=== PATIENT | female | born 1955 | race Caucasian/White ===

== ENCOUNTER 2017-05-15 09:17 | Day surgery (SDC) | payer MEDICARE ==
--- NOTE | 2017-05-15 06:52 | History and Physical - Ferro ---
CHIEF COMPLAINT/HISTORY OF CHIEF COMPLAINT: This patient presents with a history of a central pain pattern or post stroke pain pattern which involves bilateral lower extremities and right upper extremity. Secondarily there is also a diagnosis of multiple sclerosis. Due to the failure of all therapies, the patient was referred to this facility for a trial of spinal Baclofen to determine if the implantation of a permanent system can be of any value in symptom control. PAST MEDICAL HISTORY: Cerebrovascular disease, stroke, hypertension, and multiple sclerosis. PAST SURGICAL HISTORY: None listed. MEDICATIONS ON ADMISSION: List to be provided. No blood thinners. ALLERGIES: None listed. FAMILY/PSYCHOSOCIAL HISTORY: Social history - Noncontributory. Family history - Cancer. SYSTEMS REVIEW: Unremarkable. PHYSICAL EXAMINATION: Height is 5'6", weight is 110. No vital signs. HEENT: Within normal limits. LUNGS: Clear. HEART: Regular rate and rhythm. ABDOMEN: Nontender. MUSCULOSKELETAL: Examination of the musculoskeletal system shows a hemiparesis left upper extremity and lower extremity. Further evaluation shows stiffness, tightness of mobility in bilateral lower extremities. 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 The sensory field functionality appears to be essentially intact. Motor functionality shows stiffness and reduced mobility and strength in the right lower extremity. No myoclonus. Reflexes are difficult to elicit. Ambulation - Total assistive device dependent. NEUROLOGIC: Cranial nerves are intact. IMPRESSION: 1. MULTIPLE SCLEROSIS, ICD-10 CODE G35.0. 2. 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 PLAN: The patient is here for an implanted spinal catheter infusion trial of Baclofen to determine if the implantation of a permanent system can be of any value in pain control. Diagnostic studies of the thoracic and lumbar spine show moderate rotoscoliosis with a convexity to the right which may present some mild difficulty with respect to catheter placement. The implanted catheter technique has been carefully discussed with patient family members as a method to help reduce side effects in the form of spinal headache and at the same time to reduce the number of needle placements into the spinal canal risking spinal injury. The implanted catheter will be tunneled externally to an external pump which will infuse the Baclofen. The trial will run for twelve to fourteen days and during this period of time three reprogramming's or increases of the Baclofen will be established if necessary. At the end of the twelve to fourteen day trial period we will either remove the implanted catheter or implant the pump subcutaneously. Also to help reduce the incidence of spinal headache an epidural blood patch will be performed during surgery. The potential risks, side effect, complications, spinal cord injury, paralysis, nerve root injury, and spinal headache have all been carefully reviewed and discussed. Information provided through the pile driving supervisor was provided and reviewed. A outbound telemarketing representative from [employer] had a conversation directly with the patient answering all questions relative to the procedure, risks, side effect, and complications. The patient understands and has consented. We will consider this procedure an overnight stay because of medical condition and discharge in the morning. JOB NUMBER: [id number] MTDD
[~2017-05-15 09:17] MED LIST: ACETAMINOPHEN 1,000 MG/100 ML BTL IV ONE; BACLOFEN 10 MCG in 0.9 % SODIUM CHLORIDE 10ML VIA 0.98 ML IT SCH; BACLOFEN 5,000 MCG in 0.9 % SODIUM CHLORIDE 500ML 490 ML IT SCH; CEFAZOLIN 2 Gram 2 GM/50 ML BAG IVPB ONE; FAMOTIDINE 20MG TABLET PO ONE; MECLIZINE 25 MG TABLET PO ONE; METOCLOPRAMIDE 10 MG TABLET PO ONE
[2017-05-15] MEDS ORDERED: PROPOFOL 10 MG/ML VIAL IV ONE (09:18)
[2017-05-15] MEDS ORDERED: LIDOCAINE 1% W/EPI 1:200,000 MPF 30ML SQ ONE (09:18)
[2017-05-15] MEDS ORDERED: CEFAZOLIN 1G VIAL IM ONE (09:18)
[2017-05-15] MEDS ORDERED: BUPIVACAINE 0.5% W/EPI MPF 30 ML VIAL IVP ONE (09:18)
[2017-05-15] MEDS ORDERED: HYDROMORPHONE HCL 2 MG/ML VIAL IV ONE (09:18)
[2017-05-15 09:49] LABS: BLOOD UREA NITROGEN 10 mg/dL (8-23); CREATININE 0.8 mg/dL (0.5-0.9); EST GLOMERULAR FILTRATION RATE > 60 mL/min; GLUCOSE,RANDOM 96 mg/dL (74-109)
[2017-05-15] MEDS ORDERED: ACETAMINOPHEN 325 MG TAB PO PRN ×2 (15:22)
[2017-05-15] MEDS ORDERED: METOCLOPRAMIDE 10 MG TABLET PO PRN (15:22)
[2017-05-15] MEDS ORDERED: DIPHENHYDRAMINE HCL 25 MG CAPSULE PO PRN ×2 (15:22)
[2017-05-15] MEDS ORDERED: DIPHENHYDRAMINE HCL IV 50 MG/ML VIAL IVP PRN ×2 (15:22)
[2017-05-15] MEDS ORDERED: OXYCODONE/APAP 10MG-325MG TABLET PO PRN ×2 (15:22)
[2017-05-15] MEDS ORDERED: SENNOSIDES/DOCUSATE SODIUM UD CAPSULE PO PRN ×2 (15:22)
[2017-05-15] MEDS ORDERED: HYDROMORPHONE HCL 2 MG/ML VIAL IM PRN ×2 (15:22)
[2017-05-15] MEDS ORDERED: AL HYDROX/MAG HYDROX 30ML UD PO PRN (15:22)
[2017-05-15] MEDS ORDERED: METOCLOPRAMIDE HCL 10 MG/2 ML VIAL IVP PRN (15:22)
[2017-05-15] MEDS ORDERED: HYDROCODONE/APAP 7.5/325MG TABLET PO PRN ×2 (15:22)
[2017-05-15] MEDS ORDERED: TEMAZEPAM 15 MG CAPSULE PO PRN ×2 (15:22)
[2017-05-15] MEDS ORDERED: FLUOXETINE 40 MG PO SCH (15:45)
[2017-05-15] MEDS ORDERED: PATIENT OWN MED: FLUOXETINE 20 MG PO SCH (15:45)
[2017-05-15] MEDS ORDERED: PATIENT OWN MED: AMLODIPINE 5 MG PO SCH (15:45)
--- NOTE | 2017-05-15 16:05 | Operative Note - Ferro ---
DATE OF SURGERY: 05/15/17 PREOPERATIVE DIAGNOSES: 1. POST CENTRAL PAIN STROKE SYSTEM, ICD-10 CODE = G89.0. 2. MULTIPLE SCLEROSIS, ICD-10 CODE = G35.0. OPERATION: 1. FLUOROSCOPICALLY-GUIDED ACCESS SPINAL SPACE AT L4/5, PLACEMENT OF THIN- WALLED SPINAL CATHETER POSITION T10. 2. DIAGNOSTIC MYELOGRAPHY WITH RADIOLOGIC SUPERVISION AND INTERPRETATION. 3. SPINAL BOLUS BACLOFEN 20 MCG THROUGH SPINAL CATHETER. 4. INCISION, SUBCUTANEOUS DISSECTION, AND ANCHORING OF SPINAL CATHETER TO SUPRASPINOUS FASCIA WITH AN ANCHOR AND NONABSORBABLE SUTURE. 5. INCISION, SUBCUTANEOUS DISSECTION, AND CREATION OF A SMALL SUBCUTANEOUS POUCH , LEFT FLANK. 6. TUNNELING BETWEEN CATHETER, MIDLINE POUCH, AND FLANK POUCH EXTENDING CATHETER INTO FLANK POUCH. 7. INTERFACE SPINAL CATHETER AT FLANK POUCH WITH SECOND CATHETER COMPONENT BY WAY OF CONNECTOR TUNNELING SECOND CATHETER COMPONENT 6 CM SUPERIOR EXITING SKIN. 8. INTERFACE EXTERNAL CATHETER WITH EXTERNAL PUMP SET TO DELIVER BACLOFEN AT 48 MCG PER DAY. 9. CLOSURE OF MIDLINE SPINAL CATHETER INCISION, VICRYL FOR FASCIA, AND RUNNING SUBCUTICULAR VICRYL FOR SKIN. CLOSURE OF LEFT FLANK POUCH WITH NYLON RUNNING SUTURE. 10. EPIDURAL BLOOD PATCH 15 ML AUTOLOGOUS BLOOD STERILE TECHNIQUE, LEFT ANTECUBITAL AFTER AN 18-GAUGE TUOHY NEEDLE WAS USED TO ACCESS EPIDURAL SPACE AT L5/S1. 11. DRESSINGS PLACED SECURING CATHETER AND ALL CONNECTIONS UNDER STERILE DRESSING. PATIENT TRANSPORTED TO RECOVERY ROOM FLAT, PILLOW UNDER HEAD AND KNEES , STABLE SHOWING NO SIDE-EFFECTS FROM THE PROCEDURE OR THE SEDATION. FUNCTIONALITY OF ALL EXTREMITIES. NO NEW PAIN PATTERN IDENTIFIED. PATIENT, ALTHOUGH SLIGHTLY SOMNOLENT, COMPLAINED OF NO SIDE-EFFECTS. SURGEON: MONICA DE LOS SANTOS D.O. ANESTHESIA: LOCAL SEDATION. ANESTHESIA PROVIDER: CHIP COFFEY CRNA. PROCEDURE: Intravenous line, vital sign monitoring, IV sedation, prepped and draped in sterile technique. Patient position prone. Sterile prep, sterile technique. Evaluating the spine and the anatomy with a moderately severe rotational scoliosis convexity to the right, the spinal interspace at L4/5 was identified and marked, skin infiltrated, and a 20-gauge spinal needle beveled with a long axis inserted into the spinal space using AP and lateral images and slow careful advancement of the needle. With CSF through the needle, no fasciculations, no complaints on part of the patient, a thin-walled spinal catheter was advanced and positioned midbody T10. The catheter was clamped to stop CSF leak after the stylette was removed. The skin above and below the needle infiltrated, incision made, and subcutaneous dissection was conducted to the supraspinous fascia. The needle was removed and the pursestring suture, which was placed, was tightened around the catheter to stop CSF leak. The catheter was laid flat onto the field and CSF was noted coming through the catheter. Diagnostic myelography was then performed, the resulting flow characteristics was smooth and linear into the space. There was no complaint of pain or any other side-effects on the part of the patient as the contrast was injected. A smooth linear flow of myelogram flow characteristics was identified confirming catheter position. A bolus of Baclofen 20 mcg was then given through the catheter. CSF continued to be noted through the catheter. The catheter was clamped. At the left flank, a site ultimately for either the pump or a tunneling point to the abdomen was identified, infiltrated with local, and then a small incision was made and a pouch formed subcutaneously. Spinal catheter was tunneled to this left flank pouch and exited the pouch itself. The spinal catheter was then resected and interfaced by way of a connector with a second catheter component. The second catheter component was then tunneled superior exiting the skin approximately 6 cm above the pouch. The external catheter was then interfaced with an external pump, which was set to deliver Baclofen at 48 mcg per day. The midline spinal catheter incision was closed Vicryl for fascia and running subcuticular Vicryl for skin. Dermabond closure. The left flank pouch was closed with a running nylon suture. At L5/S1, one level below the dural puncture, skin infiltrated and an 18-gauge Tuohy needle with loss-of- resistance into the epidural space. Simultaneously, from the left antecubital, 15 mL of autologous blood drawn sterile technique. This blood was then placed onto the field and an epidural blood patch was performed at this level with this blood. Needle removed. The dressings were all reinforced. The catheter and all connections were then placed under sterile dressing. The patient had tolerated the procedure without difficulty and was transported to the Recovery Room stable, conversational, complaining of no pain, numbness, weakness, or anything abnormal with respect to lower or upper extremities. She was flat, kept flat, and was transported to the Floor where she will stay flat for four hours, slowly elevated for one, and then be evaluated for possible discharge. Because of the duration and her drive home, she will be kept overnight for observation and discharged in the morning. DISCHARGE INSTRUCTIONS: 1. Sites will remain clean and dry. No showering or bathing in any way that disrupts dressing. If it happens, contact the clinic. 2. Standard medications resumed. She will continue her oral Baclofen. She will start an antibiotic, Levaquin, 500 mg once a day for 14 days. She will monitor for side-effects relative to the Baclofen including increased stiffness or flaccid extremities. Should she develop nausea or any other side-effects, she should contact the clinic. Should they become concerned as to the increasing amount of flaccid muscles, they should contact the clinic for reprogramming. 3. Reprogramming sessions will be scheduled over the two week trial. The first could theoretically happen within the next 3-5 days. We will evaluate her progress and the effects of the Baclofen to determine whether reprogrammings are necessary. All other potential side-effects and complications carefully reviewed and discussed. The patient will be discharged in the morning and evaluated by phone over the next 24 hours. cc: Dr. Youssef JOB NUMBER: [id number] MTDD
[2017-05-15] MEDS: CEFAZOLIN 2 Gram 2 GM/50 ML BAG IVPB SCH (19:31)
[2017-05-16] MEDS: CEFAZOLIN 2 Gram 2 GM/50 ML BAG IVPB SCH (02:37)
[2017-05-16] MEDS: RINGERS SOLUTION,LACTATED 1,000 ML IV SCH ×2 (02:39→02:40)
--- NOTE | 2017-05-16 08:10 | RADIOLOGY REPORT ---
EXAM: LUMBAR SPINE, SINGLE VIEW HISTORY: PAIN. TECHNIQUE: A single portable view of the lumbar spine was obtained. Comparison: None. FINDINGS: Stimulating wires partially seen projecting over the lumbar spine. Overlying stool and bowel gas. IMPRESSION: SINGLE AP VIEW OF THE LUMBAR SPINE WITH PARTIAL VISUALIZATION OF A STIMULATING WIRE. JOB NUMBER: [id number] MTDD
== END 2017-05-16 09:37 | disposition home or self-care (01) ==
LOC: SUR 09:17 → MEDSURG 13:45 → SUR 05-16 09:37
PROVIDERS: ATTEND Pain Medicine Interventional Pain Medicine
DX: G35 Multiple sclerosis (principal); G89.0 Central pain syndrome; I10 Essential (primary) hypertension
CPT/HCPCS: 62350; 00630; 80048; 72020; Q9967; J1170; J0690 ×2

== ENCOUNTER 2017-05-29 12:50 | Day surgery (SDC) | payer MEDICARE ==
--- NOTE | 2017-05-29 06:28 | History and Physical Report ---
DATE: 05/28/2017. CHIEF COMPLAINT AND HISTORY OF CHIEF COMPLAINT: This is a patient with a history of multiple sclerosis. She has an implanted spinal catheter infusion trial with Baclofen with 75 percent symptom control with respect to spasticity, stiffness, and symptoms. Due to the failure of all other therapies and the success of the Baclofen spinal infusion trial, she presents today for implantation of a permanent system. PAST MEDICAL HISTORY: Unchanged. PAST SURGICAL HISTORY: Unchanged. SOCIAL HISTORY: Unchanged. FAMILY HISTORY: Unchanged. MEDICATIONS ON ADMISSION: Unchanged. ALLERGIES: Unchanged. REVIEW OF SYSTEMS: Unchanged. PHYSICAL EXAMINATION: General: Height and weight not identified. Vital Signs: Unavailable. HEENT: Within normal limits. Lungs: Clear. Heart: Rapid but regular. Abdomen: Nontender. Musculoskeletal: Examination of the musculoskeletal system shows the patient is wheelchair bound. Her primary symptom pattern is in the lower extremities with stiffness and myoclonus. The implanted catheter trial is ongoing. The current infusion rate is 78 micrograms of baclofen a day. Lower extremity evaluation is somewhat difficult because of contracture and stiffness. Sensory jones are essentially intact. Motor functionality is difficult to elicit. Neurologic: Cranial nerves are intact. IMPRESSION: 1. MULTIPLE SCLEROSIS, ICD-10 CODE G35.0. 2. POSTSTROKE SYNDROME, ICD-10 CODE G89.0. 3. IMPLANTED SPINAL CATHETER INFUSION TRIAL WITH BACLOFEN. PLAN: This patient, as well as her family members, are all in favor of this patient moving on to a permanent implant. Symptom control is roughly 50 to 75 percent. All family members, including the patient, are positive and optimistic. The permanent implant will involve removing the dressings and removing the externalized component or catheter. We will implant the pump, after careful review and discussion, rather than in the lower abdominal quadrant in the posterior flank on the left. This appears to be an optimal position because the patient's general posture while sitting seems to be somewhat forward flexed and slightly rotated to the right. This would make an abdominal pump somewhat complicated and difficult to feel. It would make a posterior flank pouch, especially on the left, easier to access and probably easier in terms of refill for the patient herself. This has been discussed and reviewed with the patient and her family members, and we are all in agreement. Because of the distance involved in transport, we will consider this procedure to be an overnight stay. Although certainly an outpatient discharge could be evaluated. The potential risks, side effects, and complications have all been carefully reviewed and discussed. JOB NUMBER: [id number] cc: Valeria Wiley
[~2017-05-29 12:50] MED LIST changes: -BACLOFEN 10 MCG in 0.9 % SODIUM CHLORIDE 10ML VIA 0.98 ML IT SCH; -BACLOFEN 5,000 MCG in 0.9 % SODIUM CHLORIDE 500ML 490 ML IT SCH; +BACLOFEN IV ONE; +SODIUM CHLORIDE 0.9% IV ONE
[2017-05-29] MEDS ORDERED: KETOROLAC 30 MG/ML VIAL IVP ONE (12:51)
[2017-05-29] MEDS ORDERED: FENTANYL PF 100MCG/2ML VIAL IV ONE (12:51)
[2017-05-29] MEDS ORDERED: LIDOCAINE 2% MDV (20MG/ML) 20ML VIAL IV ONE (12:51)
[2017-05-29] MEDS ORDERED: MIDAZOLAM HCL 2MG/2ML VIAL IV ONE (12:51)
[2017-05-29] MEDS ORDERED: CEFAZOLIN 1G VIAL IM ONE (12:51)
[2017-05-29] MEDS ORDERED: BUPIVACAINE 0.5% W/EPI MPF 30 ML VIAL IVP ONE (12:51)
[2017-05-29] MEDS ORDERED: *PACU ONLY* KETAMINE HCL 10 MG/ML (20ML) VIAL IV ONE (12:51)
[2017-05-29] MEDS ORDERED: LIDOCAINE 1% W/EPI 1:200,000 MPF 30ML SQ ONE (12:51)
[2017-05-29] MEDS ORDERED: PROPOFOL 10 MG/ML VIAL IV ONE (12:51)
--- NOTE | 2017-05-29 22:23 | Operative Note - [facility]ro ---
DATE OF SURGERY: 05/29/17 PREOPERATIVE DIAGNOSES: 1. MULTIPLE SCLEROSIS, ICD-10 CODE = G35.0. 2. POST CVA OR STROKE SYNDROME, ICD-10 CODE = G89.0. 3. IMPLANTED SPINAL CATHETER INFUSION TRIAL BACLOFEN. OPERATION: 1. FLUOROSCOPIC-GUIDED INCISION, SUBCUTANEOUS DISSECTION, AND REMOVAL OF EXTERNAL CATHETER. 2. INCISION, SUBCUTANEOUS DISSECTION, AND CREATION OF SUBCUTANEOUS POUCH AT LEFT FLANK, SITE AGREED ON BY PATIENT, FAMILY, AND MYSELF. 3. REVISION AND INTERSECTION OF INDWELLING SPINAL CATHETER WITH SECOND CATHETER COMPONENT BY WAY OF CONNECTOR. 4. INTERFACE REVISED CATHETER TO PUMP, PLACEMENT OF PUMP INTO POUCH FORMED AT LEFT FLANK WITH SUBCUTANEOUS DISSECTION. 5. ANCHORING PUMP INTO POUCH. THREE-POINT PUMP EYELETS USING NONABSORBABLE SUTURE. 6. PLACEMENT OF CURVED #24 GAUGE GUNN NEEDLE INTO ACCESS PORT PROGRAMMABLE PUMP ASPIRATION CATHETER CONTENTS CLEARING CATHETER OF CSF AND BACLOFEN. 7. DIAGNOSTIC MYELOGRAPHY WITH RADIOLOGIC SUPERVISION INTERPRETATION THROUGH ACCESS PORT. 8. WITH PUMP SECURED INTO POUCH LEFT FLANK, INCISION CLOSED WITH VICRYL FOR FASCIA, RUNNING SUBCUTICULAR VICRYL FOR SKIN. 9. PROGRAMMING OF PUMP TO DELIVER BY CONTINUOUS INFUSION BACLOFEN AT 85 MCG PER DAY. SURGEON: MONICA DE LOS SANTOS D.O. ANESTHESIA: LOCAL SEDATION. ANESTHESIA PROVIDER: JENNIFER LAST CRNA INDICATION: This patient presents with a complex pattern of post stroke and MS resulting in myoclonus, spasticity, and pain. An implanted spinal catheter infusion trial with Baclofen resulted in improvement in contractures, spasms to lower extremities, stiffness, and myoclonus. Family members along with patient in full agreement of success of the trial. They opted to implant the device. Careful discussion of the placement of the pump in lower abdominal or flank to the left was discussed. After careful review and discussion, it appeared that patient's position when sitting was side-bent and rotated forward and right lateral. An abdominal pump would have presented a significant amount of problem in this position. It was felt because of this sitting position, that putting it in the left flank away from the rotation and forward bending would be an easy spot for refills and probably tolerated better than abdominal site. Family and patient were in agreement. SURGERY: Intravenous line, vital sign monitoring, IV sedation, prepped and draped in sterile technique, patient positioned on the operating table prone. Sterile prep. Sterile technique. A sterile prep was performed at the left flank , where the previous incision and externalized catheter were performed. The previous incision was opened. The connector to the external catheter was cut and the external catheter was removed by pulling away from the incision. The internal catheter, once the pouch was opened and formed adequately with subcutaneous dissection for the pump identified as a Medtronic 20 mL programmable with the pump placed onto the field filled with Baclofen at 650 mcg per mL. The pump was interfaced with the revised catheter. The pump was then placed into the formed pouch at the left flank, secured to the posterior fascia of the pouch using the pump eyelets and nonabsorbable suture at three points. A #24 gauge Gunn needle, once the pump was in the pouch and secured to the catheter, was then placed into the access port. 1 mL of catheter contents was aspirated clearing the catheter of Baclofen and CSF. Diagnostic myelography was then performed. The resulting flow characteristics showed contrast moving to the tip of the catheter at T10. Appropriate myelogram flow characteristics noted. Tracing back along the catheter, there were no kinks, bends, or leaks. Appropriate functionality of the system was then noted. The incision was then closed Vicryl for fascia, running subcuticular Vicryl for skin. A Dermabond closure was then used to approximate the edges of the wound. The pump was then programmed to deliver by continuous infusion Baclofen at 85 mcg a day. She was transported to the Recovery Room stable showing no side effects from the procedure or the sedation. She was requesting discharge home. Discharge instructions were provided. DISCHARGE INSTRUCTIONS: 1. The sites will remain clean and dry, although the Dermabond will allow showering or bathing, not sitting in a tub or immersed in water but showering within the next 24 hours. 2. Baclofen side effects at this dose range wound include increased flexibility and loss of strength. If it happens, contact the Clinic. Any other unusual side effects should be reported to the Clinic. 3. Standard medications will be resumed including the antibiotic, Levaquin, which she was on for the trial. This will be continued for another 7 to 10 days. 4. The office will contact the patient in the next 24 hours for a visit to the Clinic in 7 to 10 days to evaluate the incision. Until that time, the sites should be kept clean, the Dermabond dressing intact. Do not pull the Dermabond, it will open the wound. At that time, we will evaluate the site and clear for any other activity levels. All other instructions provided, numbers to contact with problems have been given. She was then prepared for discharge. cc: Dr. Lakhwinder Youssef, Neurology JOB NUMBER: [id number] MTDD
== END 2017-05-29 16:50 | disposition home or self-care (01) ==
LOC: SUR 12:50
PROVIDERS: ATTEND Pain Medicine Interventional Pain Medicine
DX: G35 Multiple sclerosis (principal); G89.0 Central pain syndrome; I10 Essential (primary) hypertension; F32.9 Major depressive disorder, single episode, unspecified
CPT/HCPCS: 62350; 00630; 62367; Q9967; J1885; J3010; J0690; J0475; C1755